=== PATIENT | male | born 1955 | race Caucasian/White ===

== ENCOUNTER 2021-12-27 03:40 | Emergency (ER) | payer SELFPAY ==
--- NOTE | 2021-12-27 03:48 | NUR ---
PT SIGNED IN AND IMMEDIATELY TOLD REGISTRATION HE CHANGED HIS MIND AND DIDNT'T WANT TO BE SEEN. PT LWBS
== END 2021-12-27 03:48 | disposition left against medical advice (07) ==
LOC: MED 03:40
DX: R39.198 Other difficulties with micturition (principal); Z53.21 Procedure and treatment not carried out due to patient leaving prior to being seen by health care provider